=== PATIENT | male | born 1965 | race Caucasian/White ===

== ENCOUNTER 2022-03-01 10:03 | Outpatient (CLI) | payer OTHER, SELFPAY ==
--- NOTE | 2022-03-01 10:15 | MR_ITS ---
[address] [address] Phone:?[phone] Fax:?[phone] Referring Physician Information: Julianne Pulido [address] [facility] [address] Phone:?[phone] Fax:?[phone] Patient:?Erick Koo D.O.B:?1965 Sex:?Male Phone:?[phone] [facility] MRN:?[id number] Exam Date:?03/01/2022 ? Original Report EXAM: X-RAY FOOT 3+ VIEWS RIGHT. X-RAY FOOT 3+ VIEWS LEFT. CLINICAL INFORMATION: Abdominal general medical exam. TECHNICAL INFORMATION: Frontal, oblique and lateral view radiographs of the right foot. Frontal, oblique and lateral view radiographs of the left foot. Right foot: INTERPRETATION: No appreciable joint space narrowing or osteophytic spurring. No osseous erosive changes. No evidence for a fracture. Moderate plantar calcaneal spurring. No other osseous or joint abnormality. CONCLUSION: 1. Moderate plantar calcaneal spurring. 2. Otherwise, unremarkable. Left foot: INTERPRETATION: No appreciable joint space narrowing or osteophytic spurring. No osseous erosive changes. No evidence for a fracture. There is a mild appearance of plantar calcaneal spurring. CONCLUSION: 1. Mild plantar calcaneal spurring. 2. Otherwise, unremarkable. KES Electronically signed on 03/01/2022 1:16:00 PM by Minh Mon M.D. Addendum A Addendum: Please disregard the initial report submitted for this patient. The following is the correct report for this exam. EXAM: MRI EXAMINATION OF THE RIGHT SHOULDER CLINICAL INFORMATION: Right shoulder pain. Symptoms ongoing for months after injury. No history of surgery to this area. Possible rotator cuff tear. TECHNICAL INFORMATION: Coronal STIR as well as axial, sagittal and coronal PD and T2-weighted images acquired. INTERPRETATION: Bones: There is no Hill-Sachs impaction deformity. No other evidence for an occult fracture or osseous contusion. There is no other bone marrow edema pattern. Rotator Cuff: Series 4 images 11 through 15 demonstrate a 1.6 cm AP segment of undersurface tearing along the supraspinatus tendon insertion. As seen on series 4 image 12, there is a small full-thickness component of tear involving the mid tendon insertion. No tendon retraction or muscle belly atrophy. Mild to moderate adjacent infraspinatus tendinopathy. There is a small segment of poorly defined partial tearing involving the anterior tendon insertion. The teres minor tendon is intact. There is a 2.1 cm craniocaudal segment of deep fiber tearing and severe attenuation involving the mid to superior subscapularis tendon. Segmental moderate to marked atrophy involves the superior subscapularis muscle belly. Coracoacromial arch: There is no discrete subacromial osseous spur. The bony acromiohumeral interval is measuring 7 mm. There is no thickening identified of the coracoacromial ligament. Acromioclavicular joint: There is a mild appearance of AC joint DJD. No deformity of the underlying supraspinatus tendon. Moderate to marked fluid and edema signal within the subacromial/subdeltoid bursa areas. Biceps tendon: There is medial dislocation of the long biceps tendon from the bicipital groove. There is a linear appearance of partial tearing of the tendon approaching its superior glenoid attachment. Glenohumeral joint and labrum: There is a small glenohumeral joint effusion. No discrete loose body within the joint. Osteochondral surfaces appear relatively preserved. No discrete SLAP tear. There is a blunted appearance involving the anterior inferior aspect of the labrum. No discrete paralabral cyst is identified. CONCLUSION: 1. There is a moderate-sized segment of undersurface tearing involving the supraspinatus tendon insertion which includes a small full-thickness component. There is no tendon retraction or muscle belly atrophy. 2. Mild to moderate adjacent infraspinatus tendinopathy. There is a small and poorly defined undersurface partial tear of the anterior tendon insertion. 3. There is a moderate-sized segment of deep fiber tearing and resultant severe attenuation involving the mid to superior subscapularis tendon. Moderate to marked segmental atrophy involves the superior muscle belly. 4. Mild AC joint DJD with borderline narrowed acromiohumeral interval. 5. Biceps isauro lesion with medial dislocation of the long biceps tendon from the bicipital groove. There is a linear appearance of partial tearing of the tendon approaching the superior glenoid attachment. 6. There is a small glenohumeral joint effusion. No appreciable chondromalacia. KES Electronically signed on 03/05/2022 9:04:00 AM by Minh Mon M.D.
== END 2022-03-01 10:04 | disposition home or self-care (01) ==
PROVIDERS: PCP Family Medicine; Visit Provider Physician Assistant
DX: M25.511 Pain in right shoulder (principal); M75.101 Unspecified rotator cuff tear or rupture of right shoulder, not specified as traumatic; S46.911A Strain of unspecified muscle, fascia and tendon at shoulder and upper arm level, right arm, initial encounter; M19.011 Primary osteoarthritis, right shoulder; S43.084A Other dislocation of right shoulder joint, initial encounter; M25.411 Effusion, right shoulder
CPT/HCPCS: 73221

== ENCOUNTER 2022-08-02 06:42 | Day surgery (SDC) | payer OTHER, SELFPAY ==
[2022-08-02] VITALS (14 sets, daily range): BP systolic 121–156; BP diastolic 69–86; PULSE 56–63; RESP 16; TEMP 36.4–36.8; O2SAT 93–97; BMI 21.0
[2022-08-02] MEDS: CELECOXIB 200 MG CAPSULE PO (06:40)
[2022-08-02] MEDS: LACTATED RINGERS 1000 ML 1,000 ML 100 ML IV ×2 (07:00→10:17)
[2022-08-02] MEDS: SODIUM CHLORIDE 0.9 % (FLUSH) 10 ML SYRINGE IVF (07:18)
[2022-08-02] MEDS: fentaNYL 100 MCG/2 ML inj IVP (07:41)
[2022-08-02] MEDS: MIDAZOLAM HCL 1 MG/ML inj IVP (07:42)
[2022-08-02] MEDS: ACETAMINOPHEN 500 MG TABLET 1000 MG PO (07:55)
[2022-08-02] MEDS: OXYCODONE (CR) 10 MG TAB.ER.12H PO (07:56)
[2022-08-02] MEDS: CEFAZOLIN 2 GM INJ IVP (08:52)
--- NOTE | 2022-08-02 09:59 | P.NB_ITS ---
Nerve Block Nerve Block Time Seen by Provider: 07:44 Date Seen: 08/02/22 Type of block requested by surgeon for post-operative analgesia: supraclavicular Side: right Time out performed: Yes Verification of patient name: Yes Verification of date of : Yes Site marking: site marked Name of person performing procedure: Cody Continuous monitoring Was continuous monitoring of O2 sat, B/P, environmental monitoring technician, recorded every 15 minutes?: Yes Procedure Checklist: sterile prep, needles and gloves Ultrasound guided. Images saved: Yes Medications given in 5ml increments after negative aspiration: Ropivicaine %: 0.5 mL: 20 Needle gauge: 22 Decadron (mg): 10 Precedex (mcg): 25 Patient tolerated procedure well: Yes Block Charges Block Charge (with Pro Fee): Brachial Plexus Use of Ultrasound Machine for Block: Yes- US Guidance/pain block
--- NOTE | 2022-08-02 10:22 | P.ORPRC_ITS ---
Procedure Note Date of procedure: 08/02/22 Procedure: PREOPERATIVE DIAGNOSIS: Right shoulder rotator cuff tear, AC joint arthrosis, biceps tendinopathy, subscap tear POSTOPERATIVE DIAGNOSIS: Right shoulder rotator cuff tear, AC joint arthrosis, biceps tendinopathy, subscap tear NAME OF OPERATION: Right shoulder arthroscopic subacromial decompression, distal clavicle excision, mini open rotator cuff repair, biceps tenodesis, subscap repair SURGEON: Jose Pelayo MD [employer] DESIGNER: Iris Gallego PA-C ANESTHESIA: Supraclavicular block plus general endotracheal ESTIMATED BLOOD LOSS: 5 mL COMPLICATIONS: None SPECIMENS: None DRAINS: None PREOPERATIVE ANTIBIOTICS: Ancef 1 g INDICATIONS: The patient is a 57-year-old with a history of right shoulder pain secondary to the above diagnoses. Despite appropriate non operative management, they continue to have symptoms. Operative intervention was recommended. The risks, benefits and expected outcomes were discussed in detail. These included but were not limited to: Infection, bleeding, injury to blood vessel or nerve, venous thromboembolism. All questions were answered to their satisfaction. PROCEDURE: A supraclavicular block was placed by Anesthesia. General anesthesia was administered. The patient was placed in the high beach chair position. The right shoulder was prepped and draped in the usual sterile fashion. The glenohumeral joint was infiltrated with 20 mL of normal saline with epinephrine. The posterior portal was established, the arthroscope was introduced. The anterior portal was established, Diagnostic arthroscopy was performed with findings as follows: The biceps has a significant amount of intra-articular tendinopathy and is dislocated medially. There is age- appropriate degenerative tearing of the labrum circumferentially. Articular surfaces on the humeral head and glenoid are normal. There are no loose bodies. There is a full-thickness tear of the supraspinatus, infraspinatus and subscap. The biceps was tenotomized with the arthroscopic scissors. The arthroscope was placed in the subacromial space, the lateral portal was established. The Arthrex [place] was used to dissect the acromion free. The CA ligament was recessed off the anterior acromion, the AC joint was exposed. The acromioplasty was performed with the bur in the posterior portal. The bur was then placed in the lateral portal and the lateral and anterior aspect of the acromion were resected. The undersurface of the distal clavicle was resected through the lateral portal. Finally, the bur was placed in the anterior portal and the remainder of the distal clavicle was resected for a total of 10 mm. An accessory anterolateral portal was placed. The subacromial/subdeltoid bursa was aggressively debrided. There is a small full-thickness tear of the supraspinatus with a marked amount of thinning out of infraspinatus and subscap. Arthroscopic instruments were removed. The accessory anterolateral portal was extended proximally and distally, subcutaneous dissection was taken with electrocautery to the deltoid. The deltoid was divided in line with its fibers. The static retractor was placed. The subacromial/subdeltoid bursa was debrided with the Aguilera scissors. The bicipital groove was entered with electrocautery, delivering the biceps into the wound. We used the 15 blade, releasing the few remaining fibers of the supraspinatus and infraspinatus from the greater tuberosity. Likewise, we released the few remaining fibers of the subscap off the lesser tuberosity. Both tuberosities were debrided to punctate bleeding bone using the arthroscopic bur and Lempert rongeur. A fiber link whip stitch was placed in the biceps. We placed a FiberTape in the subscap using the scorpion in an inverted mattress fashion. The sutures were placed and a SwiveLock, high on the lesser tuberosity, laterally, just medial to the bicipital groove. This completes the subscap repair and biceps tenodesis. Two Arthrex Bio[employer] SwiveLock anchors were placed just off the articular surface, into greater tuberosity. Both limbs of the FiberWire and fiber tape were passed using the scorpion. A fiber link was placed in the leading edge of the rotator cuff x2. We tied the 2 central FiberWire sutures over the rotator cuff. We then proceeded with a lateral row of SwiveLock anchors x 2 crossing the FiberTape and incorporating the FiberWire and fiber link into each lateral row anchor. We placed the FiberWire suture on the eyelet in each lateral row anchor through the leading edge of the rotator cuff. Likewise 2 1 securing the subscap was passed through the biceps and the subscap timing it over the top. This provides an anatomic, watertight repair of the rotator cuff. There is no tension on the repair with the shoulder at 0? abduction. The wound was irrigated with normal saline off the pump. The deltoid was repaired with an 0 Vicryl in an interrupted [id number] fashion. Subcutaneous tissues were closed with a 3-0 Vicryl. Skin was closed with a 3-0 Monocryl in a subcuticular fashion. A dry dressing, polar care and sling were applied. Sponge and needle counts were correct x2. The patient tolerated the procedure well. There were no apparent complications. They were carefully transferred to the hospital bed and taken to the postanesthesia care unit in satisfactory condition. PLAN: The patient will be discharged to home. No active range of motion of the shoulder will be allowed for 6 weeks postoperatively. They can work on active range of motion of the elbow, wrist and fingers. They will follow up in the office next week for a wound check and an AP and transscapular Y-view of the shoulder prior to being seen.
--- NOTE | 2022-08-02 10:52 | W.ANESCHARGE ---
Anesthesia Charges Start Date/Time Anesthesia Start Date: 08/02/22 Anesthesia Start Time: 08:42 Stop Date/Time Anesthesia Stop Date: 08/02/22 Anesthesia Stop Time: 10:50 Summary Emergency: No
--- NOTE | 2022-08-02 11:27 | W.ANESCHARGE ---
Anesthesia Charges Start Date/Time Anesthesia Start Date: 08/02/22 Anesthesia Start Time: 08:42 Stop Date/Time Anesthesia Stop Date: 08/02/22 Anesthesia Stop Time: 10:50 Summary Emergency: No
== END 2022-08-02 12:15 | disposition home or self-care (01) ==
PROVIDERS: PCP Family Medicine; Visit Provider Orthopaedic Surgery
PROC: (CPT 23412; principal; 2022-08-02 08:15)
DX: M75.101 Unspecified rotator cuff tear or rupture of right shoulder, not specified as traumatic (principal); M75.21 Bicipital tendinitis, right shoulder; M19.011 Primary osteoarthritis, right shoulder
CPT/HCPCS: 29826; 29824; 29828; 23412; 01630; 64415; 76942; A9270; C1713; J0330; J0690; J1100; J2250; J2370; J2405; J2704; J2795; J3010; J7120; L3670